=== PATIENT | male | born 1990 | race Caucasian/White ===

== ENCOUNTER 2017-02-13 15:36 | Emergency (ER) | payer OTHER ==
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
== END 2017-02-13 17:13 | disposition home or self-care (01) ==
LOC: SED 15:36
DX: S09.90XA Unspecified injury of head, initial encounter (principal); Z23 Encounter for immunization; V49.40XA Driver injured in collision with unspecified motor vehicles in traffic accident, initial encounter; Y92.9 Unspecified place or not applicable
CPT/HCPCS: 70450; 90471; 90715; 99284